=== PATIENT | female | born 1990 | race Caucasian/White ===

== ENCOUNTER 2018-05-18 23:27 | Emergency (ER) | payer OTHER ==
[~2018-05-18] VITALS: Ht 167.6 cm; Wt 74.8 kg
[~2018-05-18 23:27] MED LIST: ALBU90OI INH; ALBU90OI6; BENZ100A PO; Prednisone20 MG PO; Zithromax250 MG PO
[2018-05-19] MEDS ORDERED: Prednisone20 MG PO (00:26)
[2018-05-19] MEDS ORDERED: BENZ100A PO (00:26)
[2018-05-19] MEDS ORDERED: ALBU90OI INH (00:26)
== END 2018-05-19 00:55 | disposition home or self-care (01) ==
LOC: ER 23:27
DX: J45.901 Unspecified asthma with (acute) exacerbation (principal); F17.210 Nicotine dependence, cigarettes, uncomplicated
CPT/HCPCS: 94640; 99284-25

== ENCOUNTER 2019-02-27 19:37 | Emergency (ER) | payer OTHER ==
[~2019-02-27] VITALS: Ht 167.6 cm; Wt 81.7 kg
[2019-02-27 20:28] LABS: Source, Urine Clean Catch
[2019-02-27 20:32] LABS: Blood, Urine 1+ (Neg); Glucose Qualitative, Urine Neg (Neg); Ketones, Urine Neg (Neg); Leukocyte Esterase, Urine Neg (Neg); Nitrite, Urine Pos (Neg); Protein, Urine 2+ (Neg); Urobilinogen, Urine 3+ (Normal)
[2019-02-27 20:33] LABS: Appearance, Urine Hazy (Clear); Bilirubin, Urine 3+ (Neg); Color, Urine Orange (P-Yellow)
[2019-02-27 20:43] LABS: Bacteria Mod /hpf; Red Blood Cells, Urine 0-2 /hpf (0-2); Squamous Epithelial Cells Few /hpf (Few)
[2019-02-27] MEDS ORDERED: Bactrim Ds Tab1 EACH PO (21:12)
== END 2019-02-27 21:50 | disposition home or self-care (01) ==
LOC: ER 19:37
PROVIDERS: Physician Assistant
DX: N30.00 Acute cystitis without hematuria (principal); Z79.52 Long term (current) use of systemic steroids
CPT/HCPCS: 81001; 81025